=== PATIENT | female | born 1955 | race Caucasian/White ===

== ENCOUNTER → 2017-09-27 | Outpatient (CLI) | payer MEDICARE, BC ==
[2017-09-27 10:35] LABS: INR 3.8 (<1.2); Prothrombin Time 37.5 sec (9.0-12.0)
== END | disposition home or self-care (01) ==
LOC: LABWHC1 09:52
PROVIDERS: ATTEND Family Medicine
DX: Z79.01 Long term (current) use of anticoagulants (principal)
CPT/HCPCS: 36415; 85610

== ENCOUNTER → 2017-11-17 | Outpatient (CLI) | payer MEDICARE, BC ==
[2017-11-17 13:38] VITALS: BMI 38.7
== END | disposition home or self-care (01) ==
LOC: MNTWWP 13:17
PROVIDERS: ATTEND Family Medicine
DX: J44.9 Chronic obstructive pulmonary disease, unspecified (principal); I82.509 Chronic embolism and thrombosis of unspecified deep veins of unspecified lower extremity; E66.01 Morbid (severe) obesity due to excess calories; R49.0 Dysphonia
CPT/HCPCS: 97802

== ENCOUNTER → 2018-01-03 | Outpatient (CLI) | payer MEDICARE, BC ==
[2018-01-03 09:41] LABS: ALT 17 U/L (9-52); AST 17 U/L (14-36); Albumin 3.7 g/dL (3.5-5.0); Alkaline Phosphatase 73 U/L (38-126); Anion Gap 9 mmol/L; Blood Urea Nitrogen 13 mg/dL (7-17); Calcium 9.7 mg/dL (8.4-10.2); Carbon Dioxide 31 mmol/L (22-30); Chloride 104 mmol/L (98-107); Cholesterol 192 mg/dL (<200); Glucose 87 mg/dL (74-99); HDL Cholesterol 50 mg/dL (40-60); LDL Cholesterol,Calculated 103 mg/dL (0-99); Potassium 4.1 mmol/L (3.5-5.1); Sodium 144 mmol/L (137-145); Total Bilirubin 0.3 mg/dL (0.2-1.3); Total Protein 6.7 g/dL (6.3-8.2); Triglycerides 196 mg/dL (<150)
[2018-01-03 09:46] LABS: Valproic Acid (Depakene) 45.9 ug/mL
[2018-01-03 09:57] LABS: T4, Free (Free Thyroxine) 1.02 ng/dL (0.78-2.19)
== END | disposition home or self-care (01) ==
LOC: LABWHC1 08:21
PROVIDERS: ATTEND Psychiatry & Neurology Neurology
DX: Z00.00 Encounter for general adult medical examination without abnormal findings (principal); R53.83 Other fatigue; E78.5 Hyperlipidemia, unspecified; E55.9 Vitamin D deficiency, unspecified
CPT/HCPCS: 36415; 80053; 80061; 80164; 82306; 82607; 84439; 84443